=== PATIENT | male | born 1960 | race Caucasian/White ===

== ENCOUNTER 2018-06-12 22:38 | Emergency (ER) | payer OTHER | END 2018-06-13 00:10 | disposition home or self-care (01) | LOC: EC 22:38 | DX: S61.411A Laceration without foreign body of right hand, initial encounter (principal); F32.9 Major depressive disorder, single episode, unspecified; F17.200 Nicotine dependence, unspecified, uncomplicated; Z79.899 Other long term (current) drug therapy; Z79.01 Long term (current) use of anticoagulants; Z95.2 Presence of prosthetic heart valve; Z23 Encounter for immunization; W45.8XXA Other foreign body or object entering through skin, initial encounter | CPT/HCPCS: 12001; 90471; 99282 ==